=== PATIENT | male | born 2000 | race African-American/Black ===

== ENCOUNTER 2019-11-13 09:20 | Emergency (ER) | payer BC, OTHER ==
[2019-11-13 09:51] VITALS: BP 140/53; PULSE 82; TEMP 98.2; BMI 28.6
--- NOTE | 2019-11-13 09:54 | PDOC ---
Rapid Medical Evaluation Chief Complaint: Chest Pain Time Seen by Provider: 11/13/19 09:45 Medical Evaluation: Allergies Allergy/AdvReac Type Severity Reaction Status Date / Time No Known Allergies Allergy Verified 11/13/19 09:33 Vital Signs Temp Pulse Resp BP Pulse Ox 98.2 F 82 18 140/53 L 99 11/13/19 09:34 11/13/19 09:34 11/13/19 09:34 11/13/19 09:34 11/13/19 09:34 11/13/19 09:51 I have performed a brief and in person evaluation of the patient. Chief complaint: Patient is a 18-year-old male with midsternal chest pain, headache and diarrhea for the last 4 days. He states he is pressure when taking a deep breath. He denies any recent long travel. Patient recently quit smoking at the beginning of the year. 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 The patient denies any cough, fever, recent travel, known COVID-19 contacts. Brief exam: Good air entry bilaterally, no wheezes, rales or rhonchi. No reproducible chest tenderness to palpation. Nontoxic-appearing. Orders: Labs including cardiac profile, saline lock, chest x-ray Low risk for COVID-19 concern Patient to proceed to ED for further evaluation. Discharge Disposition - Diagnosis Chest pain - Referrals - Patient Instructions - Post Discharge Activity
[2019-11-13 10:50] LABS: BASO % 0.7 % (0-2.0); EOS % 0.5 % (0-4.5); HEMATOCRIT 44.9 % (35.4-49); HEMOGLOBIN 14.9 GM/dL (11.7-16.9); MCH 30.4 pg (25.7-33.7); MCHC 33.3 g/dl (32.0-35.9); MEAN CELL VOLUME 91.4 fl (80-96); MEAN PLT VOLUME 8.7 fl (7.5-11.1); MONO % 10.6 % (3.8-10.2); NEUT % 64.2 % (42.8-82.8); PLATELET COUNT 189 K/MM3 (134-434); RBC 4.91 M/mm3 (4.00-5.60); RDW 12.8 % (11.9-15.9)
--- NOTE | 2019-11-13 11:00 | PDOC ---
History of Present Illness - General History Source: Patient Exam Limitations: No Limitations <Bailey Carlson - Last Filed: 11/13/19 11:24> <Jimy Bourgeois - Last Filed: 11/16/19 13:29> - General Chief Complaint: Chest Pain Stated Complaint: CHEST PAIN Time Seen by Provider: 11/13/19 09:45 Past History - Past Medical History Asthma: Yes COPD: No - Immunization History Immunization Up to Date: Yes - Psycho Social/Smoking Cessation Hx Smoking Status: No Smoking History: Never smoked Have you smoked in the past 12 months: No Number of Cigarettes Smoked Daily: 0 Hx Alcohol Use: No Drug/Substance Use Hx: No Substance Use Type: None <Bailey Carlson - Last Filed: 11/13/19 11:24> <Bk,Jimy - Last Filed: 11/16/19 13:29> - Past Medical History Allergies/Adverse Reactions: Allergies Allergy/AdvReac Type Severity Reaction Status Date / Time No Known Allergies Allergy Verified 11/13/19 09:33 Home Medications: Ambulatory Orders NK [No Known Home Medication] 11/13/19 Cardiac Specific PMH - Complaint Specific PMHX Angina: No Cardiac Arrhythmia: No GERD: No Peripheral Vascular Disease: No <Bailey Carlson - Last Filed: 11/13/19 11:24> *Physical Exam - Physical Exam General Appearance: No: Apparent Distress Respiratory/Chest: positive: Lungs Clear, Normal Breath Sounds. negative: Chest Tender, Respiratory Distress Cardiovascular: positive: Regular Rhythm, Regular Rate, S1, S2. negative: Murmur Gastrointestinal/Abdominal: positive: Normal Bowel Sounds, Soft. negative: Tender, Distended, Guarding, Rebound Extremity: negative: Pedal Edema, Swelling, Calf Tenderness Neurologic: positive: Alert, Normal Mood/Affect <Bailey Carlson - Last Filed: 11/13/19 11:24> - Vital Signs Last Vital Signs Temp Pulse Resp BP Pulse Ox 98.2 F 82 18 140/53 L 99 11/13/19 09:34 11/13/19 09:34 11/13/19 09:34 11/13/19 09:34 11/13/19 09:34 Heart Score/ECG Review - History History: Moderately suspicious - Electrocardiogram EKG: Normal - Age Age: </= 43 - Risk Factors Based on the list above the patient has:: No risk factors known - Troponin Troponin: </= normal limit - Score Heart Score - Total: 1 <Bailey Carlson - Last Filed: 11/13/19 11:24> ED Treatment Course - LABORATORY CBC & Chemistry Diagram: 11/13/19 10:30 11/13/19 10:30 <Bailey Carlson - Last Filed: 11/13/19 11:24> - LABORATORY CBC & Chemistry Diagram: 11/13/19 10:30 11/13/19 10:30 <Jimy Bourgeois - Last Filed: 11/16/19 13:29> - ADDITIONAL ORDERS Additional order review: 11/13/19 10:30 RBC 4.91 MCV 91.4 MCHC 33.3 RDW 12.8 MPV 8.7 D Neutrophils % 64.2 Lymphocytes % 24.0 D Monocytes % 10.6 H Eosinophils % 0.5 D Basophils % 0.7 Medical Decision Making <Bailey Carlson - Last Filed: 11/13/19 11:24> <Jimy Bourgeois - Last Filed: 11/16/19 13:29> - Medical Decision Making 18-year-old male with no significant past medical history presents with substernal chest pressure for 5 days which is constant in nature associated with mild shortness of breath. States chest pressure is exertional and feels it more when he runs or exercises. Positive mild nausea. Denies fever, cough, URI symptoms, abdominal pain, vomiting. Mentions he had some loose stool this morning. Denies smoking. Used to smoke marijuana but states he quit. Denies other drug use. Denies family history of heart disease. Denies recent travel. EKG: NSR at 76 bpm, no ST-T changes CXR negative Patient with low risk for ACS However, given exertional CP, will get labs to r/o ACS PERC negative 11/13/19 10:57 Labs unremarkable HS 1 stable for dc will refer to cardio 11/13/19 11:24 (Bailey Carlson) 11/16/19 13:29 The patient was seen and evaluated in conjunction with SEPIDEH Carlson under my direct supervision, ancillary studies were reviewed. I agree with the plan as outlined by SEPIDEH Carlson (Jimy Bourgeois) Discharge - Discharge Information Problems reviewed: Yes - Admission No - Additional Discharge Information Prescription Drug Monitoring Program (I-STOP) results: I-STOP not reviewed <RobynBailey - Last Filed: 11/13/19 11:24> <BkJimy encinas - Last Filed: 11/16/19 13:29> - Discharge Information Clinical Impression/Diagnosis: Chest pain Qualifiers: Chest pain type: unspecified Qualified Code(s): R07.9 - Chest pain, unspecified Condition: Stable Disposition: HOME - Follow up/Referral Referrals: Blanche Wilson MD [Primary Care Provider] - 2 Days Christos Adams MD [Staff Physician] - 2 Days - Patient Discharge Instructions Patient Printed Discharge Instructions: DI for Chest Pain Additional Instructions: Thank you for choosing [facility]. It was a pleasure taking care of you. Your labs and chest xray were unremarkable Please follow-up with your doctor in 2 days You were also referred to caregiver services home Return to the Emergency Department if your symptoms worsen or persist or have other concerning symptoms. - Post Discharge Activity
[2019-11-13 11:23] LABS: ALBUMIN 4.2 g/dl (3.4-5.0); ALK PHOS 70 U/L (45-117); ANION GAP 7 MMOL/L (8-16); BILIRUBIN,TOTAL 0.6 mg/dL (0.2-1); BLOOD UREA NITROGEN 16.2 mg/dL (7-18); CHLORIDE 108 mmol/L (98-107); CO2 26 mmol/L (21-32); CREATININE 0.8 mg/dL (0.55-1.3); GLUCOSE,RANDOM 90 mg/dL (74-106); SGOT/AST 14 U/L (15-37); SGPT/ALT 22 U/L (13-61); SODIUM 141 mmol/L (136-145); TOT PROT 7.2 g/dl (6.4-8.2)
--- NOTE | 2019-11-14 11:28 | EKG ---
Test Reason : Blood Pressure : / mmHG Vent. Rate : 076 BPM Atrial Rate : 076 BPM P-R Int : 180 ms QRS Dur : 090 ms QT Int : 342 ms P-R-T Axes : 074 084 059 degrees QTc Int : 384 ms NORMAL SINUS RHYTHM POSSIBLE LEFT ATRIAL ENLARGEMENT BORDERLINE ECG NO PREVIOUS ECGS AVAILABLE Confirmed by MD Dmitri, Stephan ([id number]) on 11/14/2019 11:28:11 AM Referred By: Confirmed By:Stephan Rizvi MD
== END 2019-11-13 11:30 | disposition home or self-care (01) ==
LOC: JER 09:20
DX: R07.9 Chest pain, unspecified (principal)
CPT/HCPCS: 36415; 71046-TC-FY; 80053; 82550; 82553; 83735; 84484; 85025; 93005; 93010; 99285-25

== ENCOUNTER 2023-10-13 00:30 | Emergency (ER) | payer BC ==
[2023-10-13 00:44] VITALS: BP 119/60; PULSE 86; RESP 19; TEMP 98.3; BMI 31.6
[2023-10-13] MEDS ORDERED: ONDANSETRON 4 MG/2 ML VIAL ONE (01:15)
[2023-10-13] MEDS ORDERED: FAMOTIDINE 20 MG/50 ML IVPB 20 MG/50 ML MG IVPB ONE (01:15)
[2023-10-13] MEDS ORDERED: MAG HYDROX/AL HYDROX/SIMETH 30 ML UNIT-DOSE CUP ONE (01:15)
[2023-10-13] MEDS: ONDANSETRON 4 MG/2 ML VIAL IVPUSH ONE (01:38)
[2023-10-13] MEDS: FAMOTIDINE 20 MG/50 ML IVPB 20 MG/50 ML MG IVPB ONE (01:38)
[2023-10-13] MEDS: SODIUM CHLORIDE 0.9% 500 ML INFUS.BAG IV ONE (01:38)
[2023-10-13] MEDS: MAG HYDROX/AL HYDROX/SIMETH 30 ML UNIT-DOSE CUP PO ONE (01:38)
[2023-10-13 01:40] LABS: BASO % 0.7 % (0-2.0); EOS % 1.1 % (0-4.5); HEMATOCRIT 42.4 % (35.4-49); HEMOGLOBIN 14.6 GM/dL (11.7-16.9); MCH 30.4 pg (25.7-33.7); MCHC 34.3 g/dl (32.0-35.9); MEAN CELL VOLUME 88.6 fl (80-96); MEAN PLT VOLUME 8.1 fl (7.5-11.1); MONO % 14.8 % (3.8-10.2); NEUT % 58.4 % (42.8-82.8); PLATELET COUNT 196 10^3/uL (134-434); RBC 4.79 M/mm3 (4.00-5.60); RDW 12.6 % (11.9-15.9); WHITE BLOOD COUNT 6.4 K/mm3 (4.0-10.0)
[2023-10-13 02:24] LABS: POTASSIUM 3.6 mmol/L (3.5-5.1)
[2023-10-13 02:25] LABS: CALCIUM 9.1 mg/dL (8.5-10.1)
[2023-10-13 02:26] LABS: BLOOD UREA NITROGEN 15.4 mg/dL (7-18)
[2023-10-13 02:31] LABS: BILIRUBIN,TOTAL 0.6 mg/dL (0.2-1); TOT PROT 6.9 g/dl (6.4-8.2)
[2023-10-13] MEDS: LACTULOSE 20 GM/30 ML UDC (FOR ORAL USE ONLY) PO ONE (03:48)
[2023-10-13] MEDS ORDERED: LACTULOSE 20 GM/30 ML UDC (FOR ORAL USE ONLY) ONE (03:53)
== END 2023-10-13 03:58 | disposition home or self-care (01) ==
LOC: JER 00:30
PROC: 3E033GC Introduction of Other Therapeutic Substance into Peripheral Vein, Percutaneous Approach (ICD-10-PCS; principal; 2023-10-13)
PROC: 3E033GC Introduction of Other Therapeutic Substance into Peripheral Vein, Percutaneous Approach (ICD-10-PCS; 2023-10-13)
DX: R10.32 Left lower quadrant pain (principal); K58.9 Irritable bowel syndrome, unspecified; K21.9 Gastro-esophageal reflux disease without esophagitis; R10.13 Epigastric pain; R14.0 Abdominal distension (gaseous); Z20.822 Contact with and (suspected) exposure to COVID-19
CPT/HCPCS: 0241U-QW; 36415; 80053; 85025; 99284-25